=== PATIENT | male | born 1965 | race Caucasian/White ===

== ENCOUNTER 2020-12-11 19:17 | Emergency (ER) | payer OTHER, SELFPAY ==
--- NOTE | ~2020-12-11 | XR_ITS ---
XR chest 1V DATE: 12/11/2020 20:24 INDICATION: Dizziness, lightheadedness, tingling today. TECHNIQUE: PA chest COMPARISON: None FINDINGS: Normal heart size. No hilar or mediastinal enlargement. No pulmonary infiltrate or consolid ation, pleural effusion or pulmonary vascular congestion or pneumothorax. IMPRESSION: No active cardiopulmonary disease. Reviewed, dictated and finalized at location A. CULTURE OPERATOR
[2020-12-11 19:23] VITALS: BP 172/83; PULSE 92; RESP 18; O2SAT 98
--- NOTE | 2020-12-11 19:29 | ECG_ITS ---
Measurements Intervals [place] Rate: 87 P: 19 MA: 175 QRS: -23 QRSD: 92 T: 32 QT: 349 QTc: 421 Interpretive Statements SINUS RHYTHM POSSIBLE LEFT ATRIAL ENLARGEMENT INCOMPLETE RIGHT BUNDLE BRANCH BLOCK LOW QRS VOLTAGE IN PRECORDIAL LEADS BORDERLINE ECG Electronically Signed On 12-12-2020 10:46:15 PROTOCOL OFFICER by Elliot Sahu D.O.
[2020-12-11 19:52] LABS: Basophils Absolute Auto 0.1 K/mm3 (0.0-0.1); Basophils Percent Auto 0.6 % (0.2-1.2); Eosinophils Absolute Auto 0.2 K/mm3 (0-0.3); Hematocrit 47.4 % (42.0-52.0); Immature Granulocyte Absolute 0.02 K/mm3 (0.00-0.031); Immature Granulocyte Percent A 0.2 % (0-0.5); Lymphocytes Absolute Auto 3.81 K/mm3 (0.9-3.2); Lymphocytes Percent Auto 37.8 % (18.3-44.2); Mean Corpuscular HGB Conc 33.8 g/dl (32-36); Mean Corpuscular Hemoglobin 33.2 pg (26-34); Mean Corpuscular Volume 98.3 fl (80-100); Mean Platelet Volume 9.3 fl (7.4-10.4); Monocytes Absolute Auto 1.1 K/mm3 (0.1-0.6); Monocytes Percent Auto 10.9 % (2.6-8.5); Neutrophils Absolute Auto 4.9 K/mm3 (1.3-6.7); Neutrophils Percent Auto 48.5 % (45.5-73.1); Platelet Count Result 336 k/mm3 (150-375); Red Blood Count 4.82 M/mm3 (4.6-6.20); Red Cell Distribution Width 13.2 % (11.5-14.5); White Blood Count 10.1 K/mm3 (4.5-10.0)
[2020-12-11 20:05] LABS: Anion Gap 6 mmol/L (8-16); Blood Urea Nitrogen 16 mg/dL (9-20); Carbon Dioxide 31 mmol/L (22-30); Chloride 103 mmol/L (98-107); Estimated CRCL calculation 84 ml/min; Estimated Glomerular Filt Rate > 60; Glucose 115 mg/dL (75-110); Potassium 4.3 mmol/L (3.4-5.0); Sodium 140 mmol/L (137-145)
[2020-12-11 20:17] LABS: Troponin I < 0.012 ng/mL (0.000-0.034)
[2020-12-11 20:23] VITALS: BP 162/95; PULSE 84; RESP 20; O2SAT 96
[2020-12-11 21:25] LABS: Add Urine Microscopic? YES; Appearance Urine Clear (Clear); Bacteria Urine Trace /hpf; Bilirubin Urine Negative (Negative); Blood Urine Negative (Negative); Color Urine Yellow (Yellow); Glucose Urine UA Negative (Negative); Ketones Urine Negative (Negative); Leukocyte Esterase Ur Negative LEU/UL (Negative); Mucus Urine Few /lpf; Nitrate Urine Negative (Negative); Protein Urine Negative (Negative); RBC Urine 0-2 /hpf (0-2); Specific Grav Ur 1.025 (1.001-1.035); Squamous Epithelial Cell Urine Rare /hpf (Few); WBC Urine 0-3 /hpf
[2020-12-11 21:31] LABS: Alanine Aminotransferase 33 U/L (4-50); Albumin Level 4.2 g/dL (3.5-5.1); Alkaline Phosphatase 64 U/L (38-126); Aspartate Amino Transferase 29 U/L (17-59); Bilirubin,Total 0.7 mg/dL (0.2-1.3)
[2020-12-11] MEDS: SODIUM CHLORIDE 0.9% IV 1,000 ML 999 ML IV CONT (21:43)
--- NOTE | 2020-12-11 21:47 | ED.GENADULT ---
HPI - General Adult General Chief complaint: Dizziness Stated complaint: tingly feeling Time Seen by Provider: 12/11/20 21:06 History of Present Illness HPI narrative: Patient is a 55-year-old gentleman who presents the emergency department with chief complaint of dizziness. Patient reports that he was working in his basement and had been sweeping just prior to that he had been bent over using a shop vac. The patient states that he suddenly became lightheaded and then became diaphoretic. The patient states he also had tingling that enveloped his body. The patient states it felt as though he was about to pass out but did not actually pass out patient states his symptoms have gradually improved since he is arrived in the emergency department and now the symptoms are almost completely resolved. Patient denies chest pain denies shortness of breath denies focal tenderness denies focal neurological deficit. Related Data Home Medications Medication Instructions Recorded Confirmed No Home Medications 12/11/20 12/11/20 Allergies Allergy/AdvReac Type Severity Reaction Status Date / Time No Known Allergies Allergy Unverified 06/17/11 03:26 Review of Systems Review of Systems: Narrative: A 10 system review of systems was completed on the patient and is negative except for what is stated in the HPI. Nursing and ancillary documentation was reviewed. PMFSH Comments Patient reports no significant past medical history Surgical history is positive for appendectomy Social history the patient denies smoking reports social alcohol and denies illicit drug use Exam Narrative: Exam Narrative: GENERAL: Well-appearing, well-nourished, and in no acute distress. HEAD: Normocephalic, atraumatic. EYES: PERRLA and EOMI. ENT: Nares clear, no rhinorrhea or epistaxis. Mucous membranes moist. NECK: Supple. CHEST: Clear to auscultation. No respiratory distress. HEART: Regular rate and rhythm. No murmur heard. Normal peripheral pulses. ABDOMEN: Soft, nontender, nondistended, normal active bowel sounds. EXTREMITIES: Normal range of motion. No edema. SKIN: Warm, dry, no rash. NEURO: No focal deficits. Alert and oriented x3. PSYCH: Normal mood and affect. Course Vital Signs Vital signs: Vital Signs Pulse Rate 92 12/11/20 19:23 Respiratory Rate 18 12/11/20 19:23 Blood Pressure 172/83 H 12/11/20 19:23 Pulse Oximetry 98 12/11/20 19:23 Pulse Rate 84 12/11/20 20:23 Respiratory Rate 20 12/11/20 20:23 Blood Pressure 162/95 H 12/11/20 20:23 Pulse Oximetry 96 12/11/20 20:23 Medical Decision Making Vital Signs Vital Signs: Vital Signs Pulse Rate 92 12/11/20 19:23 Respiratory Rate 18 12/11/20 19:23 Blood Pressure 172/83 H 12/11/20 19:23 Pulse Oximetry 98 12/11/20 19:23 Pulse Rate 84 12/11/20 20:23 Respiratory Rate 20 12/11/20 20:23 Blood Pressure 162/95 H 12/11/20 20:23 Pulse Oximetry 96 12/11/20 20:23 Lab Data Result diagrams: 12/11/20 19:46 12/11/20 19:46 Labs: Lab Results 12/11/20 12/11/20 12/11/20 Range/Units 19:46 19:46 19:46 WBC 10.1 H (4.5-10.0) K/mm3 RBC 4.82 (4.6-6.20) M/mm3 Hgb 16.0 (14.0-18.0) g/dL Hct 47.4 (42.0-52.0) % MCV 98.3 (80-100) fl MCH 33.2 (26-34) pg MCHC 33.8 (32-36) g/dl RDW 13.2 (11.5-14.5) % Plt Count 336 (150-375) k/mm3 MPV 9.3 (7.4-10.4) fl Immature Gran % (Auto) 0.2 (0-0.5) % Neut % (Auto) 48.5 (45.5-73.1) % Lymph % (Auto) 37.8 (18.3-44.2) % [place] % (Auto) 10.9 H (2.6-8.5) % Eos % (Auto) 2.0 (0-4.4) % Baso % (Auto) 0.6 (0.2-1.2) % Lymph # (Auto) 3.81 H (0.9-3.2) K/mm3 [place] # (Auto) 1.1 H (0.1-0.6) K/mm3 Eos # (Auto) 0.2 (0-0.3) K/mm3 Baso # (Auto) 0.1 (0.0-0.1) K/mm3 Abs Immat Gran (auto) 0.02 (0.00-0.031) K/mm3 Absolute Neuts (auto) 4.9 (1.3-6.7) K/mm3 Absolute Nucleated RBC 0.0 (0.0-0.012
[2020-12-11 23:00] VITALS: BP 141/85; PULSE 73; RESP 20; O2SAT 98
== END 2020-12-11 23:14 | disposition home or self-care (01) ==
PROVIDERS: Emergency Medicine; Emergency Provider Emergency Medicine; Family Provider Family Medicine Adolescent Medicine; PCP Family Medicine Adolescent Medicine
DX: R42 Dizziness and giddiness (principal); R55 Syncope and collapse; I45.10 Unspecified right bundle-branch block; R94.31 Abnormal electrocardiogram [ECG] [EKG]
CPT/HCPCS: 36415; 71045; 80048; 80076; 81001; 84484; 85025; 93005; 96360; 99284; J7030

== ENCOUNTER 2021-05-01 10:37 | Emergency (ER) | payer OTHER, SELFPAY ==
--- NOTE | ~2021-05-01 | CT_ITS ---
EXAMINATION: CT abdomen pelvis wo con DATE: 05/01/2021 12:12 INDICATION: Left flank pain. History of kidney stones. TECHNIQUE: Computed tomography (CT) of the abdomen and pelvis was performed without intravenous contr ast. The dose-length product was 342.18 mGy-cm. Automated exposure control and iterative reconstructi on technique were employed. COMPARISON: CT dated 06/17/2011 FINDINGS: There is bibasilar dependent atelectasis. Heart size normal. No significant pleural or loc cardial effusion. There is 3.7 cm right renal cyst. There is a proximal left ureteral stone measuring 5 mm with mild left hydronephrosis as well as perinephric edema. Fatty infiltration of the liver. The spleen, pancreas, adrenal glands are unremarkable. No significan t vascular abnormality. Fat-containing inguinal hernias. Bladder is unremarkable. Nonobstructive john l gas pattern. Small hiatal hernia. No lymphadenopathy. Nonobstructive bowel gas pattern. IMPRESSION: 1. Proximal left ureteral stone measuring 5 mm with mild left hydronephrosis. Reviewed, dictated and finalized at location A.
[2021-05-01 10:44] VITALS: BP 159/86; PULSE 84; RESP 18; TEMP 36.2; O2SAT 98
--- NOTE | 2021-05-01 10:48 | PC.NURSE ---
Pt unable to provide u/a at this time, requesting more time to try. Declined straight cath. Given urinal and call light.
[2021-05-01 10:56] LABS: Basophils Absolute Auto 0.1 K/mm3 (0.0-0.1); Basophils Percent Auto 0.5 % (0.2-1.2); Eosinophils Absolute Auto 0.1 K/mm3 (0-0.3); Eosinophils Percent Auto 0.6 % (0-4.4); Hemoglobin 15.9 g/dL (14.0-18.0); Immature Granulocyte Absolute 0.04 K/mm3 (0.00-0.031); Immature Granulocyte Percent A 0.4 % (0-0.5); Lymphocytes Absolute Auto 2.98 K/mm3 (0.9-3.2); Lymphocytes Percent Auto 29.6 % (18.3-44.2); Mean Corpuscular HGB Conc 32.4 g/dl (32-36); Mean Corpuscular Hemoglobin 31.9 pg (26-34); Mean Corpuscular Volume 98.4 fl (80-100); Mean Platelet Volume 9.1 fl (7.4-10.4); Monocytes Absolute Auto 1.2 K/mm3 (0.1-0.6); Monocytes Percent Auto 11.4 % (2.6-8.5); Neutrophils Absolute Auto 5.8 K/mm3 (1.3-6.7); Neutrophils Percent Auto 57.5 % (45.5-73.1); Platelet Count Result 366 k/mm3 (150-375); Red Blood Count 4.98 M/mm3 (4.6-6.20); Red Cell Distribution Width 13.6 % (11.5-14.5); White Blood Count 10.1 K/mm3 (4.5-10.0)
[2021-05-01 11:05] LABS: Alanine Aminotransferase 28 U/L (4-50); Albumin Level 4.6 g/dL (3.5-5.1); Alkaline Phosphatase 65 U/L (38-126); Anion Gap 8 mmol/L (8-16); Aspartate Amino Transferase 26 U/L (17-59); Bilirubin,Total 1.2 mg/dL (0.2-1.3); Blood Urea Nitrogen 12 mg/dL (9-20); Calcium 9.5 mg/dL (8.4-10.2); Carbon Dioxide 28 mmol/L (22-30); Chloride 105 mmol/L (98-107); Estimated CRCL calculation 96 ml/min; Estimated Glomerular Filt Rate > 60; Glucose 128 mg/dL (75-110); Lipase 94 U/L (23-300); Sodium 141 mmol/L (137-145)
[2021-05-01] MEDS: MORPHINE SULFATE (*CRX) 4 MG/ML INJ IV PUSH (11:20)
[2021-05-01] MEDS: SODIUM CHLORIDE 0.9% IV 1,000 ML 999 ML IV CONT (11:20)
[2021-05-01] MEDS: ONDANSETRON INJ 4 MG/2 ML VIAL IV PUSH (11:22)
[2021-05-01] MEDS: FAMOTIDINE 20 MG/2 ML VIAL IV PUSH (11:23)
[2021-05-01 11:26] LABS: Add Urine Microscopic? YES; Appearance Urine Cloudy (Clear); Bacteria Urine Trace /hpf; Bilirubin Urine Negative (Negative); Blood Urine 3+ (Negative); Color Urine Yellow (Yellow); Glucose Urine UA Negative (Negative); Ketones Urine Negative (Negative); Leukocyte Esterase Ur Negative LEU/UL (Negative); Mucus Urine Rare /lpf; Nitrate Urine Negative (Negative); Protein Urine 1+ mg/dL (Negative); RBC Urine >75 /hpf (0-2); Specific Grav Ur 1.019 (1.001-1.035); Urobilinogen Urine Negative mg/dL (<2.0)
[2021-05-01 11:29] VITALS: BP 172/89; PULSE 67; RESP 16; O2SAT 100
[2021-05-01] MEDS: HYDROmorphone HCL INJ (*CRX) 1 MG/ML SYR IV PUSH (12:30)
--- NOTE | 2021-05-01 13:25 | ED.GENADULT ---
HPI - General Adult General Chief complaint: Abdominal Pain Stated complaint: Kidney Stone Pain Time Seen by Provider: 05/01/21 10:46 Source: patient and RN notes reviewed Mode of arrival: ambulatory Limitations: no limitations History of Present Illness HPI narrative: Patient is a 55-year-old male who presents to emergency department for evaluation of left flank pain that began acutely today sharp stabbing pain with associated nausea patient notes history of kidney stones and feels that this is similar in nature presents per private vehicle after being dropped off has not had anything for his symptoms Related Data Allergies Allergy/AdvReac Type Severity Reaction Status Date / Time No Known Allergies Allergy Verified 05/01/21 10:47 Review of Systems Review of Systems: All systems reviewed & are unremarkable except as noted in HPI and below PMFSH Past Medical History Medical History (Updated 05/01/21 @ 13:34 by Xavi See PA-C) Urolithiasis Social History Social History Gender identity (if verbalized by the patient): Male Exam Narrative: Exam Narrative: GENERAL: Well-appearing, well-nourished, uncomfortable and in no acute distress. HEAD: Normocephalic, atraumatic. EYES: PERRLA and EOMI. ENT: Nares clear, no rhinorrhea or epistaxis. Mucous membranes moist. CHEST: Clear to auscultation. No respiratory distress. No wheezes rales or rhonchi HEART: Regular rate and rhythm. No murmur heard. Normal peripheral pulses. ABDOMEN: Soft, nontender, nondistended EXTREMITIES: Normal range of motion. No edema. SKIN: Warm, dry, no rash. NEURO: No focal deficits. Alert and oriented x3. Cranial nerves II through XII grossly intact PSYCH: Normal mood and affect. Course Course Emergency Course: Patient in the room in no distress aware of case findings treatment plan and diagnosis agreeing to follow-up as instructed or to return if symptoms worsen or concerns. Patient was medicated had improvement aware of findings will follow with urology and feels comfortable with outpatient therapy at this time hemodynamically stable ABCs and vital signs stable and intact Vital Signs Vital signs: Vital Signs Temperature 97.1 F L 05/01/21 10:44 Pulse Rate 84 05/01/21 10:44 Respiratory Rate 18 05/01/21 10:44 Blood Pressure 159/86 H 05/01/21 10:44 Pulse Oximetry 98 05/01/21 10:44 Temperature 97.1 F L 05/01/21 10:44 Pulse Rate 67 05/01/21 11:29 Respiratory Rate 16 05/01/21 11:29 Blood Pressure 172/89 H 05/01/21 11:29 Pulse Oximetry 100 05/01/21 11:29 Medical Decision Making MDM Narrative Medical decision making narrative: Patient with urolithiasis will be discharged home with outpatient follow-up agreement with treatment plan and diagnosis will return if symptoms worsen pain well controlled at this time Vital Signs Vital Signs: Vital Signs Temperature 97.1 F L 05/01/21 10:44 Pulse Rate 84 05/01/21 10:44 Respiratory Rate 18 05/01/21 10:44 Blood Pressure 159/86 H 05/01/21 10:44 Pulse Oximetry 98 05/01/21 10:44 Temperature 97.1 F L 05/01/21 10:44 Pulse Rate 67 05/01/21 11:29 Respiratory Rate 16 05/01/21 11:29 Blood Pressure 172/89 H 05/01/21 11:29 Pulse Oximetry 100 05/01/21 11:29 Lab Data Result diagrams: 05/01/21 10:49 05/01/21 10:49 Labs: Lab Results 05/01/21 05/01/21 05/01/21 Range/Units 10:49 10:49 10:56 WBC 10.1 H (4.5-10.0) K/mm3 RBC 4.98 (4.6-6.20) M/mm3 Hgb 15.9 (14.0-18.0) g/dL Hct 49.0 (42.0-52.0) % MCV 98.4 (80-100) fl MCH 31.9 (26-34) pg MCHC 32.4 (32-36) g/dl RDW 13.6 (11.5-14.5) % Plt Count 366 (150-375) k/mm3 MPV 9.1 (7.4-10.4) fl Immature Gran % (Auto) 0.4 (0-0.5) % Neut % (Auto) 57.5 (45.5-73.1) % Lymph % (Auto) 29.6 (18.3-44.2) % [place] % (Auto) 11.4 H (2.6-8.5) % Eos % (Auto) 0
[2021-05-01] MEDS: MORPHINE SULFATE (*CRX) 2 MG/ML INJ IV PUSH (13:56)
[2021-05-01 14:02] VITALS: BP 174/91; PULSE 72; RESP 18; O2SAT 100
== END 2021-05-01 14:02 | disposition home or self-care (01) ==
PROVIDERS: Emergency Provider Emergency Medicine; PCP Family Medicine Adolescent Medicine
DX: N13.2 Hydronephrosis with renal and ureteral calculous obstruction (principal); Z87.442 Personal history of urinary calculi
CPT/HCPCS: 36415; 74176; 80053; 81001; 83690; 85025; 96361; 96374; 96375; 96376; 99284; J1170; J2270; J2405; J7030

== ENCOUNTER → 2022-01-14 16:03 | Outpatient (CLI) | payer OTHER, SELFPAY ==
--- NOTE | ~2022-01-14 | XR_ITS ---
XR abdomen/kub 1V DATE: 01/14/2022 16:50 INDICATION: Ureteral stone TECHNIQUE: Supine AP views. 2 COMPARISON: 05/01/[address] abdomen pelvis FINDINGS: There is no urinary tract calcification is evident. Associated as are intact. No visceromeg thomas is evident. No evidence of bowel obstruction. Degenerative changes of the thoracic and lumbar spine. IMPRESSION: Nonspecific abdomen Reviewed, dictated and finalized at Location A. Reviewed, dictated and finalized at location A. E MAKER IMPRESSION: Nonspecific abdomen
== END ==
PROVIDERS: Visit Provider Urology
DX: N20.1 Calculus of ureter (principal)
CPT/HCPCS: 74018

== ENCOUNTER 2023-01-05 10:51 | Day surgery (SDC) | payer OTHER, SELFPAY ==
[2022-11-26 07:59] VITALS: BMI 34.0
[2022-12-02 10:33] VITALS: BMI 32.4
--- NOTE | 2023-01-05 07:11 | WPDANESEPPF ---
Anes - Initial Pre Proc Eval Procedure: Operation Date: 01/05/23 12:30 Proposed Procedures p Screening Colonoscopy - Partha Alejandra MD Date/Time: 01/05/23 07:11 Surgeon: Partha Alejandra MD Pre Op Diagnosis: Neoplasm Screening Patient Data Age: 57 Gender: M Height: 1.83 m Weight: 108.5 kg Allergies Allergy/AdvReac Type Severity Reaction Status Date / Time No Known Allergies Allergy Verified 01/05/23 11:10 Home Medications Medication Instructions Recorded Confirmed Type sodium,potassium,mag sulfates 17.5 See Rx Instructions PO .COMPLEX 11/26/22 01/05/23 Rx gram-3.13 gram-1.6 gram oral soln #354 mL (Suprep Bowel Prep Kit) Patient hx anesthesia problems: none Family hx anesthesia problems: none Results Review: All pre-operative results and documents have been reviewed as part of the pre-operative evaluation. [facility] Past Medical History Medical History (Updated 01/05/23 @ 11:10 by Partha Alejandra MD) Urolithiasis (04/2021) Surgical History Surgical History (Updated 11/21/22 @ 07:05 by Eugene Bullock MD) History of appendectomy (1985) 1985 Family History Family History (Updated 11/21/22 @ 07:06 by Eugene Bullock MD) Father Malignant neoplasm of prostate Diabetes mellitus Mother Carcinoma of colon Sibling Melanoma Social History Social History Smoking status: Never smoker Alcohol intake: current Substance use: never Substance use type: does not use Living arrangements: alone Gender identity (if verbalized by the patient): Male Spiritual care concerns: No Anes - Eval Final PreProcedure Day of Procedure 01/05/23 07:11 Patient weight: obese Heart: regular rate and rhythm Lungs: clear to auscultation Airway: Mallampati scale class II Neurological: alert and oriented Last oral intake: >/= 8 hours ASA classification: II Emergent: no Anesthetic plan: proceed Anesthesia type and monitoring: general GIVS and standard monitoring Results Review: All pre-operative results and documents have been reviewed as part of the pre-operative evaluation. Informed Consent: The patient's anesthetic plan and its attendant risks and benefits were discussed with the patient/family/POA. Questions were solicited and answers provided to the satisfaction of the patient/family/POA.
[2023-01-05 11:05] VITALS: BP 152/112; PULSE 91; RESP 20; TEMP 36.9; O2SAT 97
--- NOTE | 2023-01-05 11:09 | P.HP_ITS ---
History of Present Illness History of Present Illness Consent: Risks, benefits, and alternatives have been discussed and questions answered. Patient agrees to proceed with procedure. Chief complaint: Neoplasm Screening Narrative: Rosana Merrill is a 57 year old male Presents for screening colonoscopy. Patient's family history is significant his mother had colon cancer. Patient presents today for screening colonoscopy his weight appetite and bowel movements are normal. Patient denies abdominal pain. He has had no bleeding. Review of Systems Review of Systems: Review of systems noncontributory. [facility] Past Medical History Medical History (Updated 01/05/23 @ 11:10 by Partha Alejandra MD) Urolithiasis (04/2021) Surgical History Surgical History (Updated 11/21/22 @ 07:05 by Eugene Bullock MD) History of appendectomy (1985) 1985 Family History Family History (Updated 11/21/22 @ 07:06 by Eugene Bullock MD) Father Malignant neoplasm of prostate Diabetes mellitus Mother Carcinoma of colon Sibling Melanoma Social History Social History Smoking status: Never smoker Alcohol intake: current Substance use: never Substance use type: does not use Living arrangements: alone Gender identity (if verbalized by the patient): Male Spiritual care concerns: No Meds Home Medications and Allergies Home Medications Medication Instructions Recorded Confirmed Type sodium,potassium,mag sulfates 17.5 See Rx Instructions PO .COMPLEX 11/26/22 01/05/23 Rx gram-3.13 gram-1.6 gram oral soln #354 mL (Suprep Bowel Prep Kit) Allergies Allergy/AdvReac Type Severity Reaction Status Date / Time No Known Allergies Allergy Verified 01/05/23 11:10 Exam Narrative: Physical exam reveals patient to be alert. Vital signs stable. HEENT exam is unremarkable. Patient is anicteric. Lungs are clear to auscultation and percussion. Heart is without murmur or extra sounds. Abdomen bowel sounds are present soft nontender with no organomegaly. Digital external rectal exam is normal. Assessment and Plan Assessment and plan (1) Family history of colon cancer in mother: Code(s): Z80.0 - Family history of malignant neoplasm of digestive organs Status: Acute Assessment and Plan: Patient's mother has had colon cancer. For this reason surveillance colonoscopy at 5 year intervals is advised.
[2023-01-05] MEDS: LACTATED RINGERS 1,000 ML 150 ML IV CONT (11:20)
[2023-01-05 13:08] VITALS: BP 118/80; PULSE 94; RESP 18; O2SAT 99
[2023-01-05 13:18] VITALS: BP 144/92; PULSE 85; RESP 16; O2SAT 99
--- NOTE | 2023-01-05 13:25 | WPDANESPN ---
Anes - Prog Note Post-Op Date/Time: 01/05/23 13:25 Cardiovascular status: normal Respiratory status: normal Airway patency: baseline Mental status: baseline Post-Op hydration status: normal Vital Signs: Last Vital Signs Temp 36.9 C 01/05/23 11:05 Pulse 85 01/05/23 13:18 Resp 16 01/05/23 13:18 BP 144/92 H 01/05/23 13:18 Pulse Ox 99 01/05/23 13:18 O2 Del Method Room Air 01/05/23 13:18 Pain Score (VAS): 0 I/O: Intake & Output 01/04/23 01/05/23 01/05/23 23:59 07:59 15:59 Intake Total 400 Balance 400 Post-procedural complaints: none Patient Feedback: Patient satisfied with anesthetic care. Other Findings: Patient vital signs back to baseline. Patient denies nausea and vomiting. Patient's pain under control. Patient OK for discharge.
--- NOTE | 2023-01-05 13:26 | SUR.PHASEII ---
PT AWAKE AND ALERT. DENIES PAIN. DRINKING WATER.
[2023-01-05 13:28] VITALS: BP 158/86; PULSE 80; RESP 16; O2SAT 98
== END 2023-01-05 13:40 | disposition home or self-care (01) ==
PROVIDERS: PCP Family Medicine Adolescent Medicine; Visit Provider Internal Medicine Gastroenterology
PROC: 0DJD8ZZ Inspection of Lower Intestinal Tract, Via Natural or Artificial Opening Endoscopic (ICD-10-PCS; CPT 45378; principal; 2023-01-05 12:30)
DX: Z80.0 Family history of malignant neoplasm of digestive organs (principal)
CPT/HCPCS: 45378

== ENCOUNTER 2023-11-05 12:27 | Emergency (ER) | payer OTHER, SELFPAY ==
--- NOTE | 2023-11-05 12:33 | ED.GENADULT ---
HPI - General Adult General Chief complaint: Upper Respiratory Infection Stated complaint: Cough, Fever, Chills Source: patient, RN notes reviewed and old records reviewed Mode of arrival: ambulatory Limitations: no limitations History of Present Illness HPI narrative: 58-year-old male patient presents to [facility] with complaint cough, congestion that started yesterday morning. Patient states now also having chills, myalgia, possible fever. Patient taking [id number] medications with no relief. Patient denies weakness, dizziness, chest pain, shortness of breath. MD complaint: cough, congestion, chills, myalgia Onset (ago): day(s) (1) Related Data Home Medications Medication Instructions Recorded Confirmed No Home Medications 11/05/23 11/05/23 Allergies Allergy/AdvReac Type Severity Reaction Status Date / Time No Known Allergies Allergy Verified 11/05/23 12:38 Review of Systems Constitutional: Constitutional: Reports no additional constitutional complaints, Reports body ache(s), Reports chills, Denies fatigue, Reports fever(s) and Denies headache(s) Eyes: Eyes: Reports no additional eye complaints and Denies blurry vision ENT: Reports system reviewed and no additional complaints, except as documented, Denies vertigo, Denies dizziness, Denies ear discharge, Denies otalgia, Denies facial pain, Reports headache(s), Reports nasal congestion, Reports nasal discharge, Denies sinus pain, Denies sinus pressure and Denies sore throat Cardiovascular: Cardiovascular: Reports no additional cardiovascular complaints, Denies chest pain, Denies chest pain at rest, Denies rapid heart rate and Denies dyspnea Respiratory: Respiratory: Reports no additional respiratory complaints, Reports chest congestion, Reports cough, Denies pain on inspiration, Denies pain with cough and Denies dyspnea Gastrointestinal: Gastrointestinal: Denies abdominal pain, Denies diarrhea, Denies nausea and Denies vomiting Integumentary/Breasts: Skin/Breast: Denies rash Neurologic: Reports system reviewed and no additional complaints, except as documented, Denies vertigo, Denies dizziness and Denies headache(s) Endocrine: Endocrine: Denies fatigue PMF Past Medical History Medical History Urolithiasis (04/2021) Surgical History Surgical History History of appendectomy (1985) 1985 Family History Family History Father Malignant neoplasm of prostate Diabetes mellitus Mother Carcinoma of colon Sibling Melanoma Social History Social History Smoking status: Never smoker Alcohol intake: current Substance use: never Substance use type: does not use Living arrangements: alone Gender identity (if verbalized by the patient): Male Spiritual care concerns: No Comments At the time of my signature, I reviewed and agree with the nursing past medical, surgical, social, and family history. There is no relevant family history pertinent to the patient complaint. Exam Const: General: cooperative, healthy appearing, no acute distress and well nourished Nutritional Appearance: well nourished Orientation/consciousness: patient oriented x3 Limitations: no limitations HENMT: Head: normal to inspection and normocephalic Ears: external ears normal, TM's normal bilaterally, mastoids normal and Abnormal EAC present Face/Nose/Sinus: normal facial exam Face and sinus: normal facial exam Mouth: Yes Normal oral and palatal mucosa present, Yes oropharynx normal and Yes moist mucous membranes Throat: tonsils normal, uvula midline, posterior oropharynx abnormal erythema and no uvular edema Eyes: General: appearance normal, both eyes and all related structures Sclera: sclerae normal Pupils: Equal, round and reactive pup
[2023-11-05 12:44] VITALS: BP 158/88; PULSE 92; RESP 16; TEMP 37.2; O2SAT 98
== END 2023-11-05 12:58 | disposition home or self-care (01) ==
PROVIDERS: Emergency Provider Registered Nurse; PCP Family Medicine Adolescent Medicine
DX: J06.9 Acute upper respiratory infection, unspecified (principal); Z20.822 Contact with and (suspected) exposure to COVID-19
CPT/HCPCS: 87426; 87804; 99213; C9803; G0463

== ENCOUNTER → 2023-12-04 12:59 | Outpatient (CLI) | payer OTHER, SELFPAY ==
--- NOTE | ~2023-12-04 | XR_ITS ---
XR chest 2V DATE: 12/04/2023 13:22 INDICATION: Cough TECHNIQUE: 2 views COMPARISON: 12/11/2020 PA chest FINDINGS: There is mild infiltrate or atelectasis at the left lung base. The lungs otherwise appear c lear. No pleural effusion or pulmonary vascular congestion or pneumothorax. Normal heart size. No hilar or mediastinal enlargement is evident. Degenerative spurring of the thoracic spine. IMPRESSION: Mild infiltrate or atelectasis at the left lung base Reviewed, dictated and finalized at location B. 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
== END ==
PROVIDERS: PCP Family Medicine Adolescent Medicine; Visit Provider Family Medicine Adolescent Medicine
DX: R05.9 Cough, unspecified (principal); R91.8 Other nonspecific abnormal finding of lung field
CPT/HCPCS: 71046